=== PATIENT | female | born 1930 | race Caucasian/White ===

== ENCOUNTER → 2017-03-01 | Outpatient (CLI) | payer MEDICARE, BC ==
[~2017-03-01] MED LIST: AMLODIPINE BESYL5 MG PO; ASPIRIN EC81 M1 PO; ASPIRIN81 M1 PO; ASPIRIN81 M2 PO; B-121000 MC1 PO; CENTRUM SILVER1 EAC2 PO; ENFOLAST TABLE1 EACH SL; FISH OIL 1,0001 CA2 PO; FISH OIL 1,01 CAP.EC PO; FISH OIL 1,2001 EAC3 PO; GABAPENTIN300 MG PO; LANTUS100 U/ML SQ; LANTUS100 U/ML SUBQ; LANTUS100 UNITS/ SUBQ; LO-DOSE ASPIRIN81 M1 PO; METFORMIN HCL1000 M1 PO; METFORMIN HCL500 M1 PO; MULTI VITAMIN1 EACH PO; MULTI-DAY1 TAB PO; NOVOLOG100 U/M1 SUBQ; NOVOLOG100 U/ML SUBQ; PANTOPRAZOLE SO40 MG PO; PRINIVIL40 MG PO; TYL325 PO; VITAL-D RX TABL1 TAB PO; VITAMIN B 12 SL; VITAMIN D31000 UNIT PO; VITAMIN D34000 UNIT PO; ZESTRIL40 MG PO
--- NOTE | ~2017-03-01 | MY11 ---
[facility] A Service of [facility] & [facility] RADIOLOGY TEXT RESULTS PATIENT: DANIELLE CHOUDHARY LOCATION: [facility] : 32 UNIT #: [id number] AGE: [address]: Nicolle Kolb MD SEX: F ORDER DR: [id number] [facility] [address] [place], [place] [address] [id number] O MR#: [id number] Acc #: [id number] NAME: DANIELLE CHOUDHARY. : 1930 SEX: F STUDY DATE/TIME: 03/01/2017 12:16 UNIT: [facility] ROOM: STUDY DESCRIPTION: MY Mammogram Screening Dig Silvio Attending Physician: Nicolle Kolb M.D. Referring Physician: Nicolle Kolb M.D. Ordering Physician: Nicolle Kolb M.D. Primary Care Physician: Nicolle Kolb M.D. MEDICAL IMAGING REPORT This report is preliminary unless electronic signature is present EXAM Digital screening mammogram, 03/01/2017 HISTORY 86-year-old woman no risk elevation. Annual screening. COMPARISON Mammograms date to 01/24/2007 with most recent 02/20/2016. FINDINGS Digital imaging of each breast was completed utilizing screening protocol. Review includes FDA-approved CAD device. Breast parenchyma is partially fatty replaced and mildly heterogeneous. Vascular calcification is noted in each breast. There is no interval occurring mass. There are no suspicious microcalcifications and no architectural deformity. IMPRESSION Negative mammogram. Annual screening recommended. Patients over the age of 40 are entered into a reminder system with target due date for the next mammogram. A result letter will also be sent to the patient. BIRADS: 1 Negative Dictated by... David Johnson M.D. THIS IS AN ELECTRONICALLY VERIFIED REPORT David Johnson M.D. at 03/01/2017 3:15 PM Toshia TD: 03/01/2017 14:27 [facility] A Service of [facility] RADIOLOGY TEXT RESULTS PATIENT: DANIELLE CHOUDHARY LOCATION: [facility] : 32 UNIT #: [id number] AGE: [address]: Nicolle Kolb MD SEX: F ORDER DR: JOB #: [id number] MEDICAL IMAGING REPORT Page 1 of 1 COPY
== END | disposition home or self-care (01) ==
LOC: CWCC 11:54
DX: Z12.31 Encounter for screening mammogram for malignant neoplasm of breast (principal)
CPT/HCPCS: G0202

== ENCOUNTER → 2017-04-13 | Day surgery (SDC) | payer MEDICARE, BC ==
--- NOTE | ~2017-04-13 | OR ---
Unit #: [id number] #: [id number] Patient: DANIELLE CHOUDHARY [id number] [address] [address] [id number] O MR#: [id number] NAME: DANIELLE CHOUDHARY. ROOM: Date of Procedure: 04/13/2017 Admission Date: 04/13/2017 Surgeon: Elias Warren M.D. : 1930 Attending Physician: Elias Warren M.D. Primary Care Physician: Primary Care Physician No OPERATIVE REPORT PRIMARY CARE PHYSICIAN Nicolle Kolb M.D. PREOPERATIVE DIAGNOSES The patient has presented with a history of left and right lower quadrant abdominal pain, which is intermittent along with watery nonbloody diarrhea, which is also intermittent. PROCEDURES PERFORMED 1. Colonoscopy with biopsy. 2. Colonoscopy with polypectomy. POSTOPERATIVE DIAGNOSES 1. Single sessile polyp about 1.2 cm in size in the mid ascending colon. The latter was removed using snare cautery polypectomy. It was retrieved and sent for histology. 2. Mild sigmoid and descending colon diverticulosis. 3. Rest of the examination up to cecum and terminal ileum was normal. The quality of the prep was excellent. Multiple random colonic biopsies were obtained from throughout the colon to rule out microscopic or collagenous colitis. SEDATION USED MAC. DESCRIPTION OF PROCEDURE Following detailed explanation of the potential risks and complications of a colonoscopy, namely perforation, bleeding, and complications related to sedation, the patient was brought to GI lab and laid in the left lateral decubitus position. A digital rectal examination was performed, which was normal. Lubricated tip of the Olympus video colonoscope was inserted through the anus and advanced under direct vision. The scope was advanced past rectosigmoid into descending colon. Scant small diverticula were noted in this area. The scope tip was then navigated all the way up to cecum with visualization of the ileocecal valve and the appendiceal orifice. Preparation was excellent with good visualization and photodocumentation was obtained. Last several inches of the terminal ileum were also visualized after intubation of the ileocecal valve and appeared normal. Successive segments of the colonic mucosa were examined upon withdrawal. A single sessile polyp about 1.2 cm in size was seen in the mid ascending colon. The latter was removed using snare cautery polypectomy. The polyp was retrieved and sent for histology. No Unit #: [id number] #: [id number] Patient: DANIELLE CHOUDHARY additional polyps were noted. Multiple random colonic biopsies were obtained from throughout the colon to rule out microscopic or collagenous colitis. Other than the scant diverticula seen in the left side, no other additional abnormalities were noted. The scope was then withdrawn. The patient did not have any internal hemorrhoids at anal verge. The scope was then withdrawn and the patient returned to the recovery area. She tolerated the procedure without any postprocedure complications. Dictated by... Cruz Nunez/alex TD: 04/13/2017 16:06 JOB #: [id number] CC: Nicolle Kolb M.D. OPERATIVE REPORT Page 1 of 1 X Elias Warren MD X PROCEDURE OPERATIVE NOTE
== END | disposition home or self-care (01) ==
LOC: COPS 12:12
DX: D12.2 Benign neoplasm of ascending colon (principal); K52.9 Noninfective gastroenteritis and colitis, unspecified; K57.30 Diverticulosis of large intestine without perforation or abscess without bleeding; E11.9 Type 2 diabetes mellitus without complications; I10 Essential (primary) hypertension; Z88.0 Allergy status to penicillin; Z88.2 Allergy status to sulfonamides; Z88.8 Allergy status to other drugs, medicaments and biological substances; Z79.82 Long term (current) use of aspirin; Z79.84 Long term (current) use of oral hypoglycemic drugs; Z79.4 Long term (current) use of insulin; Z79.899 Other long term (current) drug therapy; Z90.710 Acquired absence of both cervix and uterus; Z98.51 Tubal ligation status; Z98.890 Other specified postprocedural states; Z88.5 Allergy status to narcotic agent
CPT/HCPCS: 82947; 88305

== ENCOUNTER → 2017-05-02 | Outpatient (CLI) | payer MEDICARE, BC ==
--- NOTE | ~2017-05-02 | CR63 ---
[facility] A Service of [facility] & [facility] RADIOLOGY TEXT RESULTS PATIENT: DANIELLE CHOUDHARY LOCATION: [facility] : 32 UNIT #: [id number] AGE: [address]: Nicolle Kolb MD SEX: F ORDER DR: [id number] [facility] [address] [place], [place] [address] [id number] O MR#: [id number] Acc #: [id number] NAME: DANIELLE CHOUDHARY. : 1930 SEX: F STUDY DATE/TIME: 05/02/2017 16:13 UNIT: [facility] ROOM: STUDY DESCRIPTION: CR Chest 2 View Attending Physician: Nicolle Kolb M.D. Referring Physician: Nicolle Kolb M.D. Ordering Physician: Nicolle Kolb M.D. Primary Care Physician: Nicolle Kolb M.D. MEDICAL IMAGING REPORT This report is preliminary unless electronic signature is present EXAM PA and lateral chest radiograph INDICATIO Pain in the left shoulder. No known injury. It has been present for 3 weeks. FINDINGS I do think the patient has some mild cardiomegaly although I do not see any evidence of vascular congestion. No pneumothorax, pleural effusion or acute infiltrate is seen. No aggressive osseous abnormalities are identified. Minimal wedging noted at what I think is probably T12 appears unchanged when compared to March 2009. IMPRESSION Stable cardiomegaly without evidence of vascular congestion. No acute findings. Dictated by... Suzie Barnard M.D. THIS IS AN ELECTRONICALLY VERIFIED REPORT Suzie Barnard M.D. at 05/03/2017 12:55 PM FARRAH/jw TD: 05/03/2017 08:45 JOB #: [id number] MEDICAL IMAGING REPORT Page 1 of 1 COPY
== END | disposition home or self-care (01) ==
LOC: CRAD 15:51
DX: M25.512 Pain in left shoulder (principal); I51.7 Cardiomegaly
CPT/HCPCS: 71020